=== PATIENT | female | born 1975 | race Caucasian/White ===

== ENCOUNTER 2016-11-19 07:57 | Day surgery (SDC) | payer MEDICARE ==
[~2016-11-19] VITALS: Ht 170.2 cm; Wt 129.0 kg
[~2016-11-19 07:57] MED LIST: BUPR100T7 PO; FLUT9.9S NS; Lactated Ringer's 1,000 ML IV ONE; METF500T4 PO; OMEP20TA24 PO; SUMA5SPR2 NS; VERA40TA2 PO
[2016-11-19] MEDS ORDERED: Propofol 10 mg/mL 20 mL Inj ONE (07:58)
[2016-11-19 08:26] VITALS: BP 140/80; PULSE 82; RESP 16; O2SAT 95
[2016-11-19] MEDS ORDERED: METO25TA6 PO (08:26)
[2016-11-19 09:12] VITALS: BP 112/77; PULSE 80; RESP 15; O2SAT 99
[2016-11-19] MEDS ORDERED: Lactated Ringer's 1,000 ML IV SCH (09:13)
[2016-11-19] MEDS ORDERED: Ondansetron 2 mg/mL 2 mL Inj IVPUSH PRN (09:15)
[2016-11-19] MEDS ORDERED: MetoCLOpramide 5 mg/mL 2 mL Inj IVPUSH PRN (09:15)
[2016-11-19 09:22] VITALS: BP 109/59; PULSE 82; RESP 16; O2SAT 99
--- NOTE | 2016-11-19 10:09 | PCM.HPANE ---
Patient Data Surgeon Admitting Provider: Attending Provider:Oj Corrigan MD Primary Care Physician:Brenda Redding MD Other Provider:Kaiser Ortega Anesthesia Reason for Visit Ddiarrhea, Epigastric Pain Ht/WT & BMI Height (Feet): 5 Height (Inches): 7 Weight (Kilograms): 129 Body Mass Index 44.00 Allergies Coded Allergies: Penicillins (Verified Allergy, Intermediate, Rash, 11/19/16) Past Anesthesia History Anesthesia History: Denies:: Abnormal Airway, Anesthesia Reactions, Difficult Intubation, Fam Anesthesia Reaction, Fam Malignant Hypertherm, Malignant Hyperthermia Diabetes History Hx Diabetes?: No MRSA MRSA: No Medications Home Meds Incl Beta Rochelle: Yes (FOR TREMORS AND MIGRAINES) Date Beta Rochelle Taken: Nov 18, 2016 Time Beta Rochelle Taken: 1700 Reported Medications Metoprolol Tartrate 25 Mg Jebsws57 Mg PO BID 30 Days Ref 0 11/19/16 Bupropion ER (Wellbutrin SR)100 Mg Tablet.er75 Mg PO BID Ref 0 11/18/16 Verapamil 40 Mg Ptthhg95 Mg PO TID Ref 0 11/18/16 Sumatriptan 5 Mg Spray5 Mg NS 11/18/16 Omeprazole Magnesium (Prilosec Otc)20 Mg Tablet.dr20 Mg PO DAILY #1 PKG Ref 0 11/18/16 Metformin 500 Mg Shuqdd084 Mg PO BID Ref 0 11/18/16 Fluticasone Propionate (Flonase Allergy Relief)50 Mcg/Actuation [place].susp9.9 Ml NS 11/18/16 History History of ENT Problems?: No HEENT History: Denies:: Abnormal Airway Cataracts Difficult Intubation Dysphagia Glaucoma Hearing Problem Sinus Problem TMJ Denture Type: None Teeth Condition: Within Normal Limits Hx of Heart Problems?: Yes Cardiovascular History: Positive for:: Hypertension Denies:: AICD Abdominal Aortic Aneurism Atrial Fibrillation Cardiac Surgery Chest Pain Congestive Heart Failure Coronary Artery Disease Edema Heart Murmur Irregular Heartbeat Pacemaker Peripheral Vascular Rheumatic Fever Thrombophlebitis Valvular Heart Disease Hx of Respiratory Problem?: No Respiratory History: Denies:: Asthma COPD Chest Surgery Cough Dyspnea Emphysema Hemoptysis Oxygen Administration Pneumonia Pulmonary Embolism Tuberculosis Use of C-PAP Machine Use of Inhalers / NEBS Hx Neurologic Problems?: No Neurological History: Positive for:: Headaches Denies:: Alzheimer's Disease CVA Dementia Dizziness Multiple Sclerosis Parkinson's Disease Peripheral Neuropathy Seizures TIA Hx of GI Problems?: Yes Gastrointestinal History: Denies:: Cirrhosis Diverticulitis Gall Bladder Disease Gastroesphageal Reflux Gastrointestinal Bleeding Heartburn Hepatitis Hiatal Hernia Liver Disease Rectal Bleeding Hx of Problems?: No Genitourinary History: Denies:: HX of Hemodialysis Kidney Stones Urinary Tract Infection HX of Peritoneal Dialysis: No Female Hx: Denies:: Currently Endometriosis Pelvic Inflammatory Problems with Breasts? Skin History: Denies:: History Skin Disorders? Pressure Ulcers Hx Musculoskeletal Problems?: No Musculoskeletal History: Denies:: Back Injury Degenerative Joint Fibromyalgia Joint Replacement Musculoskeletal Trauma Myasthenia Gravis Osteoarthritis Rheumatoid Arthritis Systemic Lupus Hx of Psycho/Social Problems?: No Psycho Social History: Positive for:: Anxiety Hx Depression Denies:: Bipolar Disorder Suicide Attempt Hx Surgeries?: Yes (BART, ) Hx Any Other Health Problems?: Yes Other History: Denies:: Cancer Endocrine Disease Hospitalization Thyroid Disease History Blood Transfusions: Denies:: Accept Blood Products? Blood Transfuse Reaction Blood Transfusions Hx Diabetes: No Hx Alcohol Use: Yes (SELDOM) Stop/Bang Treated for Sleep Apnea?: Yes Do You Have a CPAP Machine?: Yes Risk Assessment Category Category 1A: Patient has history of documented sleep apnea, and HAS NOT received any narcotic, sedative or anesthesia administration during this stay. Category 1B: Patient has history of documented sleep apnea, and HAS received any narcotic , sedative or anesthesia administration during this stay Category 2: Patient has SUSPECTED Obstructive Sleep Apnea, and HAS received any narcotic , sedative or anesthesia administration during this stay. Category 3: Patient has SUSPECTED Obstructive Sleep Apnea and HAS NOT received narcotic, sedative or anesthesia administration during this stay. Category 4: Outpatient in Procedural Areas with known sleep apnea or who screen positive for High Risk via the STOP/BANG questionnaire. Exam Exam Vital Signs Vital Signs Date Time Temp Pulse Resp B/P Pulse Ox O2 Delivery O2 Flow Rate FiO2 11/19/16 08:26 36.0 82 16 140/80 95 Room Air General Appearance: Alert, Oriented X3, Cooperative, No Acute Distress HEENT/AIRWAY: MP 2, Neck Movement (FROM), Mouth Opening (3 FBMO) Lungs: Clear to Auscultation, Normal Air Movement Heart: Exam Unremarkable, Regular Rate/Rhythm, No Murmurs/Rubs/Gallops Plan Impression Patient chart reviewed, patient interviewed and anesthestic plan with risks, benefits, and alternatives discussed, and informed consent obtained. ASA Physical Status: ASA3 Severe Disease (BMI 44) Anesthetic Plan: GA, MAC Bene/Risks/Altern/Consents: Yes HP Complete Prior to Induction: Yes Kleber Gomez MD Nov 19, 2016 08:33
--- NOTE | 2016-11-19 10:10 | PCM.ANEP1 ---
Post Anesthesia PACU Phase 1 Assessment Vital Signs Vital Signs Date Time Temp Pulse Resp B/P Pulse Ox O2 Delivery O2 Flow Rate FiO2 11/19/16 09:22 82 16 109/59 99 Room Air 11/19/16 09:12 80 15 112/77 99 Room Air 11/19/16 08:26 36.0 82 16 140/80 95 Room Air Anesthetic Administered: MAC Level of Alertness: Awake, talking MONTEJO's with Equal Strength: Yes Pain: No Nausea or Vomiting: No CV Function & Hydration Stable: No Airway Device: N/A Oxygen Delivery: Room Air Lungs: Clear to Auscultation, Normal Air Movement Dermatome Level: Full Sensation PACU Phase 2 Assessment Complications: No Follow up Care: N/A Patient Instructions Provided: N/A Kleber Gomez MD Nov 19, 2016 10:10
--- NOTE | 2016-11-19 11:21 | ENDO ---
[address] [address] ENDOSCOPY PROCEDURE PATIENT: DAVID ROBERTSON : 1975 MR#: [id number] ADMIT: 11/19/2016 JOB ID: [id number] PROCEDURE: Esophagogastroduodenoscopy. INDICATION: Epigastric pain. Patient's ASA classification, Mallampati score, and medication list as per Dr. Kleber Gomez's anesthesia report. INSTRUMENT USED: [id number]. PROCEDURE DETAILS: After informed consent was obtained, the patient was brought into the GI suite, where she was placed on oxygen via nasal cannula and monitored with continuous pulse oximeter, telemetry, and blood pressure monitoring. A time-out was performed. Then, she was placed in a left lateral decubitus position and medications were administered for sedation. A bite block was placed. The standard esophagogastroduodenoscopy scope was then inserted through the bite block and advanced under direct visualization to second portion of duodenum without difficulty. FINDINGS: 1. Normal appearing duodenal bulb, first and second portion. Multiple random biopsies were obtained. 2. Normal appearing pylorus. In the antrum and body of stomach there was erythema along with what appeared to be a linear erosion in the distal gastric body that measured approximately 5 mm in length. Multiple random biopsies were obtained. 3. Multiple gastric body polyps were noted in the gastric body. Appearance was consistent with fundic gland polyps. Polyps ranged in size from 5 mm to 8 mm. 4. Retroflexed views in the gastric body revealed a normal appearing cardia and fundus. 5. The GE junction was at approximately 40 cm. It was slightly irregular. There was one island of salmon-colored mucosa just above the GE junction which was biopsied. The remainder of the esophagus otherwise unremarkable. IMPRESSION: 1. Linear erosion and gastritis in the body of the stomach. 2. Fundic gland polyps. 3. Slightly irregular gastroesophageal junction. RECOMMENDATIONS: 1. Await biopsy results. 2. PPI daily. 3. Avoid NSAIDs if able. 4. Proceed to colonoscopy. COMPLICATIONS: None. ESTIMATED BLOOD LOSS: Less than 5 mL.
--- NOTE | 2016-11-19 11:23 | ENDO ---
[address] [address] ENDOSCOPY PROCEDURE PATIENT: DAVID ROBERTSON : 1975 MR#: [id number] ADMIT: 11/19/2016 JOB ID: [id number] PROCEDURE PERFORMED: Colonoscopy. INDICATION: Diarrhea. Please see upper endoscopy report for ASA classification, Mallampati score, and medications. INSTRUMENT USED: [id number]. PREPARATION QUALITY: Good. PROCEDURE DETAILS: After completion of the EGD exam, the patient was turned and then a digital rectal exam was performed, which was unremarkable. The colonoscope was then inserted into the rectum and advanced under direct visualization to the terminal ileum which was identified by the presence of the ileocecal valve and villous appearing mucosa of the terminal ileum. Once the terminal ileum was reached, the colonoscope was withdrawn back into the rectum as the mucosa and lumen were examined. In the rectum, retroflexion was performed. Following retroflexion, remaining air in the rectum was suctioned, and procedure was completed. FINDINGS: 1. Small internal hemorrhoids were noted in the anal canal. Otherwise normal exam from rectum to terminal ileum. 2. Multiple random biopsies were obtained throughout the terminal ileum and colon secondary to patient's complaint of diarrhea. IMPRESSION: Small internal hemorrhoids, otherwise normal exam. RECOMMENDATIONS: 1. Await biopsy results. 2. Follow up in GI clinic. 3. Consider trial of MiraLAX daily. COMPLICATIONS: None. ESTIMATED BLOOD LOSS: Less than 5 mL.
--- NOTE | 2016-11-20 10:58 | PATH ---
SURGICAL PATHOLOGY Attending Physician:Nilesh Caal CASE STATUS: Signed Out PATIENT NAME: DAVID ROBERTSON PID: [id number] : 1975 DATE COLLECTED:11/19/2016 16:15 SPECIMEN: 1: Duodenum, Biopsy 2: Gastric, Biopsy 3: Stomach, Polyp, Biopsy 4: Esophagus, Biopsy 5: Ileum, Biopsy 6: Colon, Biopsy CLINICAL HISTORY: 1. DUODENUM BIOPSY 2. RANDOM GASTRIC R/O H.PYLORI 3. GASTRIC BODY POLYP 4. DISTAL ESOPHAGUS BIOPSY 5. TERMINAL IIEUM BIOPSY 6. RANDOM COLON BIOPSY FINAL DIAGNOSIS: 1.DUODENUM BIOPSY: DUODENAL MUCOSA WITH NO DIAGNOSTIC ABNORMALITY. Negative for active inflammation, features of sprue, dysplasia, and malignancy. 2.RANDOM GASTRIC BIOPSY: BODY-TYPE MUCOSA WITH NO DIAGNOSTIC ABNORMALITY. Negative for Helicobacter pylori organisms. Negative for intestinal metaplasia. Negative for dysplasia and malignancy. 3.GASTRIC BODY POLYP: FUNDIC GLAND POLYP. Negative for intestinal metaplasia. Negative for dysplasia and malignancy. 4.DISTAL ESOPHAGUS BIOPSY: SQAMOUS AND COLUMNAR MUCOSA WITH NO DIAGNOSTIC ALTERATIONS. Negative for intestinal/Webb' s metaplasia. Negative for dysplasia and malignancy. 5.TERMINAL ILEUM BIOPSY: NORMAL TERMINAL ILEUM MUCOSA. No inflammation identified. Negative for dysplasia and malignancy. 6.RANDOM COLON BIOPSY: NORMAL COLONIC MUCOSA. Negative for inflammation, dysplasia and malignancy. ICD10 K31.7 GROSS DESCRIPTION: 1. Received in formalin, labeled with the patient' s name and "duodenum biopsy", are four pieces of pandya, soft tissue measuring 0.2 x 0.2 x 0.1 cm to 0.3 x 0.2 x 0.1 cm. Totally submitted in cassette 1A. 2. Received in formalin, labeled with the patient' s name and "random gastric H. pyloric", is one piece of pandya, soft tissue measuring 0.7 x 0.3 x 0.2 cm. Totally submitted in cassette 2A. 3. Received in formalin, labeled with the patient' s name and "gastric body polyp", is one piece of pandya, soft tissue measuring 0.5 x 0.3 x 0.3 cm. Totally submitted in cassette 3A. 4. Received in formalin, labeled with the patient' s name and "distal esophagus", is one piece of pandya, soft tissue measuring 0.7 x 0.3 x 0.1 cm. Totally submitted in cassette 4A. 5. Received in formalin, labeled with the patient' s name and "terminal lumen", is one piece of pandya, soft tissue measuring 0.7 x 0.3 x 0.1 cm. Totally submitted in cassette 5A. 6. Received in formalin, labeled with the patient' s name and "random colon biopsy", are multiple pieces of pandya, soft tissue rough from 0.1 x 0.1 x 0.1 cm to 0.4 x 0.2 x 0.1 cm. Totally submitted in cassette 6A. [id number]) MICRO DESCRIPTION: See diagnosis. ICD-9 CODES: CPT CODES: 1: 06429 2: 24989 3: 19746 4: 24596 5: 34945 6: 64978 Electronically Signed Out Jessie Mir MD [facility] [address], [place] [address] Technical component performed at [facility], [facility] [address], [place], [address]
== END 2016-11-19 23:59 | disposition home or self-care (01) ==
LOC: END 07:57
PROVIDERS: ATTEND Internal Medicine Gastroenterology
DX: K64.8 Other hemorrhoids (principal); K31.7 Polyp of stomach and duodenum; R19.7 Diarrhea, unspecified; R10.13 Epigastric pain; K21.9 Gastro-esophageal reflux disease without esophagitis; I10 Essential (primary) hypertension; E66.01 Morbid (severe) obesity due to excess calories; F41.8 Other specified anxiety disorders; Z79.84 Long term (current) use of oral hypoglycemic drugs; Z68.41 Body mass index [BMI] 40.0-44.9, adult
CPT/HCPCS: 43239; 45380; J7120